=== PATIENT | female | born 1970 | race Caucasian/White ===

== ENCOUNTER 2017-09-03 06:37 | Emergency (ER) | payer OTHER ==
[~2017-09-03] VITALS: Ht 160 cm; Wt 86.7 kg
[~2017-09-03 06:37] MED LIST: ADVAIR 250/501 DISK IH; Aspirin E.C. PO; CELEXA40 MG PO; DEXILANT60 MG PO; MYCOSTATIN 100,60 ML PO; NEXIUM20 MG PO; PRAVACHOL40 MG PO; PREDNISONE PO; PREDNISONE5 MG PO; PROTONIX40 MG PO; PROVENTIL17 G1 IH; ZOLOFT; ZYRTEC-D1 TABLET PO
[2017-09-03] MEDS ORDERED: ASPIR 8181 M1 PO (07:43)
[2017-09-03] MEDS ORDERED: FUROSEMIDE20 MG PO (07:44)
[2017-09-03] MEDS ORDERED: FLONASE ALLERG9.9 ML BOTH NARES (07:44)
[2017-09-03] MEDS ORDERED: SYMBICORT60 INHALAT IH (07:45)
[2017-09-03] MEDS ORDERED: MOTRIN800 MG PO (08:13)
[2017-09-03 08:25] VITALS: BP 118/72
== END 2017-09-03 08:26 | disposition home or self-care (01) ==
LOC: EME 06:37
DX: S80.01XA Contusion of right knee, initial encounter (principal); M79.661 Pain in right lower leg; W20.8XXA Other cause of strike by thrown, projected or falling object, initial encounter; Y92.239 Unspecified place in hospital as the place of occurrence of the external cause; Y99.0 Civilian activity done for income or pay; R11.0 Nausea; Z79.82 Long term (current) use of aspirin
CPT/HCPCS: 73564; 99281; 99283

== ENCOUNTER 2018-04-02 13:03 | Emergency (ER) | payer OTHER ==
[~2018-04-02] VITALS: Ht 160 cm; Wt 84.4 kg
[~2018-04-02 13:03] MED LIST changes: +ASPIR 8181 M1 PO; +FLONASE ALLERG9.9 ML BOTH NARES; +FUROSEMIDE20 MG PO; +MOTRIN800 MG PO; +SYMBICORT60 INHALAT IH
[2018-04-02 13:16] VITALS: BP 138/85
[2018-04-02] MEDS ORDERED: NORCO 5/3251 TABLET PO (14:54)
== END 2018-04-02 15:32 | disposition home or self-care (01) ==
LOC: EME 13:03
DX: S22.42XA Multiple fractures of ribs, left side, initial encounter for closed fracture (principal); S40.022A Contusion of left upper arm, initial encounter; W18.09XA Striking against other object with subsequent fall, initial encounter; Y93.E5 Activity, floor mopping and cleaning; Y92.002 Bathroom of unspecified non-institutional (private) residence as the place of occurrence of the external cause; J45.909 Unspecified asthma, uncomplicated; Z88.2 Allergy status to sulfonamides; Z88.0 Allergy status to penicillin; Z88.8 Allergy status to other drugs, medicaments and biological substances
CPT/HCPCS: 71101; 73030; 73060; 73080; 73090; 99281; 99284